=== PATIENT | female | born 1965 | race Caucasian/White ===

== ENCOUNTER → 2016-07-31 | Outpatient (CLI) | payer BC ==
--- NOTE | 2016-07-31 16:32 | BD ---
EXAMINATION TYPE: MG DEXA axial skeleton. DATE OF EXAM: 07/31/2016 3:00 PM COMPARISON: NONE CLINICAL HISTORY: 50-year-old female screening for osteoporosis Height: 61 Weight: 173.1 FRAX RISK QUESTIONS: Alcohol (3 or more units per day): yes Family History (Parent hip fracture): yes Glucocorticoids (More than 3mos): no (Ex: prednisone, prednisolone, methylprednisolone, dexamethasone, and hydrocortisone). History of Fracture in Adulthood: no Secondary Osteoporosis: 1. Type 1 Diabetes: no 2. Hyperthyroidism: no 3. Menopause before 45: no 4. Malnutrition: no 5. Chronic liver disease: no Rheumatoid Arthritis: no Current Tobacco Use: no RISK FACTORS HISTORY OF: Hip Fracture (Right/Left): no Spine Fracture: no History of Wrist Fracture: no Surgery to Spine/Hip(right/left)/Wrist (right/left): no Family History of Osteoporosis: yes Active: yes Diet low in dairy products/other sources of calcium: yes Postmenopausal woman: around age 46 Lost more than 2 inches in height since high school: no Frequent falls: no Adrenal Insufficiency: no MEDICATIONS: high bp meds EXAM MEASUREMENTS: Bone mineral densitometry was performed using the [employer] System. Bone mineral density as measured about the Lumbar spine is: ----- L1-L4(G/cm2): 1.386 T Score Values are as follows: ----- L2: 1.7 ----- L3: 2.3 ----- L4: 1.1 ----- L1-L4: 1.7 Bone mineral density baseline Bone mineral density about the R hip (g/cm2): 1.011 Bone mineral density about the L hip (g/cm2): 0.964 T Score values are as follows: -----R Neck: -0.2 -----L Neck: -0.5 -----R Intertrochanter: 0.3 -----L Intertrochanter: 0.2 Bone mineral density baseline IMPRESSION: Normal bone mineral density as measured in the lumbar spine and both hips. Rescreen in 5 years. NOTE: T-SCORE=SD OF THE YOUNG ADULT MEAN.
--- NOTE | 2016-08-01 14:05 | MM ---
Reason for exam: screening (asymptomatic). Last mammogram was performed 1 year ago. History: Patient had first child at age 30. Family history of breast cancer in maternal aunt. Took hormonal contraceptives for 6 years beginning at age 19. Physical Findings: A clinical breast exam by your physician is recommended on an annual basis and results should be correlated with mammographic findings. MG Screening Mammo w CAD Bilateral CC and MLO view(s) were taken. Prior study comparison: July 26, 2015, bilateral MG screening mammo w CAD. July 21, 2014, bilateral MG screening mammo w CAD. The breast tissue is heterogeneously dense. This may lower the sensitivity of mammography. Finding: There are stable typically benign calcifications in the right breast. No significant changes in finding since July 26, 2015 and July 21, 2014. ASSESSMENT: Benign, BI-RAD 2 RECOMMENDATION: Routine screening mammogram of both breasts in 1 year.
== END | disposition home or self-care (01) ==
LOC: RADMAMWWP 14:27
PROVIDERS: ATTEND Family Medicine
DX: Z12.31 Encounter for screening mammogram for malignant neoplasm of breast (principal); Z13.820 Encounter for screening for osteoporosis
CPT/HCPCS: 77080; G0202

== ENCOUNTER → 2017-08-28 | Outpatient (CLI) | payer BC ==
--- NOTE | 2017-08-29 08:19 | MM ---
Reason for exam: screening (asymptomatic). Last mammogram was performed 1 year and 1 month ago. History: Patient had first child at age 30. Family history of breast cancer in maternal aunt. Took hormonal contraceptives for 6 years beginning at age 19. Physical Findings: A clinical breast exam by your physician is recommended on an annual basis and results should be correlated with mammographic findings. MG Screening Mammo w CAD Bilateral CC and MLO view(s) were taken. Prior study comparison: July 31, 2016, bilateral MG screening mammo w CAD. July 26, 2015, bilateral MG screening mammo w CAD. The breast tissue is heterogeneously dense. This may lower the sensitivity of mammography. Stable benign calcifications in the right breast. There is no discrete abnormality. No significant changes when compared with prior studies. ASSESSMENT: Benign, BI-RAD 2 RECOMMENDATION: Routine screening mammogram of both breasts in 1 year.
== END | disposition home or self-care (01) ==
LOC: RADMAMWWP 15:16
PROVIDERS: ATTEND Family Medicine
DX: Z12.31 Encounter for screening mammogram for malignant neoplasm of breast (principal)
CPT/HCPCS: 77067

== ENCOUNTER → 2018-09-14 | Outpatient (CLI) | payer BC ==
--- NOTE | 2018-09-16 08:15 | MM ---
Reason for exam: screening (asymptomatic). Last mammogram was performed 1 year and 1 month ago. History: Patient had first child at age 30. Family history of breast cancer in maternal aunt at age 60. Took hormonal contraceptives for 6 years beginning at age 19. Physical Findings: A clinical breast exam by your physician is recommended on an annual basis and results should be correlated with mammographic findings. MG Screening Mammo w CAD Bilateral CC and MLO view(s) were taken. Prior study comparison: August 28, 2017, bilateral MG screening mammo w CAD. July 31, 2016, bilateral MG screening mammo w CAD. The breast tissue is heterogeneously dense. This may lower the sensitivity of mammography. No significant changes when compared with prior studies. ASSESSMENT: Benign, BI-RAD 2 RECOMMENDATION: Routine screening mammogram of both breasts in 1 year.
== END | disposition home or self-care (01) ==
LOC: RADMAMWWP 15:14
PROVIDERS: ATTEND Family Medicine
DX: Z12.31 Encounter for screening mammogram for malignant neoplasm of breast (principal)
CPT/HCPCS: 77067

== ENCOUNTER 2019-11-25 06:49 | Day surgery (SDC) | payer BC ==
[2019-11-23 15:57] VITALS: BMI 32.1
[~2019-11-25 06:49] MED LIST: LACTATED RINGERS 1,000 ML IV SCH
[2019-11-25 07:18] VITALS: RESP 16; TEMP 97
[2019-11-25] MEDS ORDERED: LIDOCAINE 1% (10MG/ML) FOR IV START INTRADERMA ONE (07:29)
[2019-11-25] MEDS ORDERED: PROPOFOL 10 MG/ML 20 ML VIAL IV ONE (07:34)
--- NOTE | 2019-11-25 08:11 | P.PCN ---
Date of Procedure: 11/25/19 Description of Procedure: BRIEF HISTORY: Patient is a 54-year-old pleasant female scheduled for an elective colonoscopy as a part of follow-up of a family history of colon cancer. Reports colon cancer in her maternal grandmother as well as colon polyps in her mother. No change in bowel habits, blood per rectum or abdominal pain. PROCEDURE PERFORMED: Colonoscopy with polypectomy. PREOPERATIVE DIAGNOSIS: Family history of colon cancer, last colonoscopy approximately 7 years ago. ESTIMATED BLOOD LOSS: Minimal. IV sedation per Anesthesia. PROCEDURE: After informed consent was obtained, the patient, was brought into the endoscopy unit. IV sedation was administered by Anesthesia under continuous monitoring. Digital rectal examination was normal. Initially the Olympus CF-190 flexible video colonoscope was then inserted in the rectum, gradually advanced into the cecum without any difficulty. Careful examination was performed as the scope was gradually being withdrawn. Ileocecal valve and the appendiceal orifice were visualized and appeared normal. Prep was excellent. Mucosa of the cecum, ascending colon, transverse colon, descending colon, sigmoid colon, and rectum appeared normal. Diminutive 2 mm ascending colon sessile polyp removed with cold forcep polypectomy. Diminutive 2 mm sessile descending colon polyp removed with cold forcep polypectomy. 3 mm sigmoid colon polyp removed with cold forcep polypectomy. Retroflexion was performed in the rectum and no lesions were seen, low-grade internal hemorrhoids. The patient tolerated the procedure well. IMPRESSION: 3 diminutive polyps removed with cold forcep polypectomy. Low-grade internal hemorrhoids. RECOMMENDATIONS: Findings of this examination were discussed with the patient. Okay to resume diet. Okay to resume medications. Await pathology from polypectomy. Would recommend repeat colonoscopy in 7 years given polyps and family history of colon cancer.
[2019-11-25 08:31] VITALS: BP 122/77; PULSE 85
== END 2019-11-25 08:55 | disposition home or self-care (01) ==
LOC: ORWHC2ENDO 06:49
PROVIDERS: ATTEND Internal Medicine
DX: Z12.11 Encounter for screening for malignant neoplasm of colon (principal); D12.2 Benign neoplasm of ascending colon; D12.4 Benign neoplasm of descending colon; K63.5 Polyp of colon; K64.8 Other hemorrhoids; Z80.0 Family history of malignant neoplasm of digestive organs; Z83.71 Family history of colonic polyps; I10 Essential (primary) hypertension; Z88.5 Allergy status to narcotic agent; Z79.899 Other long term (current) drug therapy; Z98.890 Other specified postprocedural states
CPT/HCPCS: 88305; 45380; J2704

== ENCOUNTER → 2019-12-01 | Outpatient (CLI) | payer BC ==
--- NOTE | 2019-12-03 08:50 | MM ---
Reason for exam: screening (asymptomatic). Last mammogram was performed 1 year and 3 months ago. History: Patient had first child at age 30. Family history of breast cancer in maternal aunt at age 60. Took hormonal contraceptives for 6 years beginning at age 19. Physical Findings: A clinical breast exam by your physician is recommended on an annual basis and results should be correlated with mammographic findings. MG Screening Mammo w CAD Bilateral CC and MLO view(s) were taken. Prior study comparison: September 14, 2018, bilateral MG screening mammo w CAD. August 28, 2017, bilateral MG screening mammo w CAD. The breast tissue is heterogeneously dense. This may lower the sensitivity of mammography. No significant changes when compared with prior studies. ASSESSMENT: Negative, BI-RAD 1 RECOMMENDATION: Routine screening mammogram of both breasts in 1 year.
== END | disposition home or self-care (01) ==
LOC: RADMAMWWP 15:02
PROVIDERS: ATTEND Family Medicine
DX: Z12.31 Encounter for screening mammogram for malignant neoplasm of breast (principal)
CPT/HCPCS: 77067

== ENCOUNTER → 2020-02-14 | Outpatient (CLI) | payer BC ==
--- NOTE | 2020-02-15 07:36 | US ---
EXAMINATION TYPE: US pelvis complete transvag DATE OF EXAM: 02/14/2020 COMPARISON: NONE CLINICAL HISTORY: 54-year-old female N95.0 post menopausal bleeding. History of ablation TECHNIQUE: Transabdominal sonographic images of the pelvis were acquired. Transvaginal sonographic images were medically necessary to better assess the following anatomy: Endometrium, ovaries Date of LMP: TALENT ENGINEER, FINDINGS: EXAM MEASUREMENTS: Uterus: 6.7 x 3.9 x 3.1 cm Endometrial Stripe: 0.2 cm Left Ovary: 2.4 x 1.1 x 1.6 cm 1. Uterus: Anteverted. There is a heterogeneous hypoechoic area along the left fundal endometrium me asuring 0.8 x 0.9 x 0.5 cm. 2. Endometrium: Trace fluid seen within endometrial canal 3. Right Ovary: Obscured by overlying bowel gas 4. Left Ovary: single 5 mm follicle/cyst seen 5. Bilateral Adnexa: wnl 6. Posterior cul-de-sac: no free fluid IMPRESSION: 1. A focal 9 mm heterogeneous hypoechoic area along the left fundal endometrium. The remainder of the stripe appears thin compatible with a history of prior endometrial ablation. An endometrial polyp, s ome focal endometrial hyperplasia, or small focus of developing endometrial carcinoma are all in the differential. 2. The right ovary was not visualized.
== END | disposition home or self-care (01) ==
LOC: RADUSWWP 15:23
PROVIDERS: ATTEND Family Medicine
DX: N85.00 Endometrial hyperplasia, unspecified (principal)
CPT/HCPCS: 76830; 76856

== ENCOUNTER → 2020-06-19 | Outpatient (CLI) | payer BC ==
[2020-06-19 16:10] LABS: Basophils % (A) 1 %; Eosinophils # (A) 0.1 k/uL (0-0.7); Eosinophils % (A) 2 %; HCT 43.1 % (34.0-46.0); HGB 14.4 gm/dL (11.4-16.0); Lymphocytes # (A) 2.1 k/uL (1.0-4.8); Lymphocytes % (A) 30 %; MCH 28.8 pg (25.0-35.0); MCHC 33.4 g/dL (31.0-37.0); MCV 86.2 fL (80.0-100.0); Mean Platelet Volume 8.4; Monocytes # (A) 0.3 k/uL (0-1.0); Monocytes % (A) 5 %; Neutrophils # (A) 4.2 k/uL (1.3-7.7); Neutrophils % (A) 61 %; Platelet Count 205 k/uL (150-450); RBC 4.99 m/uL (3.80-5.40); RDW 12.5 % (11.5-15.5)
[2020-06-20 00:38] LABS: African American GFR (CKD) 112.3 (60.0-200.0); Non-African American GFR(CKD) 96.9 (60.0-200.0); Potassium 4.3 mmol/L (3.5-5.5)
== END | disposition home or self-care (01) ==
LOC: LABWHC1 15:16
PROVIDERS: ATTEND Obstetrics & Gynecology
DX: Z01.818 Encounter for other preprocedural examination (principal)
CPT/HCPCS: 36415; 80048; 85025; 86850; 86900; 86901; 93005

== ENCOUNTER 2020-06-26 05:46 | Observation (INO) | payer BC ==
[2020-06-16 15:57] VITALS: BMI 31.1
--- NOTE | 2020-06-25 18:03 | P.HPOB ---
History of Present Illness H&P Date: 06/25/20 Chief Complaint: Postmenopausal bleeding, uterine prolapse with cystocele, u rinary incont. This is a 54 y.o. female, 2, para 2, who presents for total vaginal hysterectomy with anterior vaginal repair, possible total abdominal hysterectomy with bilateral salpingooophorectomy due to postmenopausal bleeding and urinary incontinence with cystocele. She had a previous endometrial ablation in 2011 and began having spotting starting August 2019. Pelvic US showed uterus 6.7 x 3.9 x 3.1 cm with endometrial thickness of 2 mm. There was a small focus along the left fundal endometrium measuring measuring up to 0.9 cm that did not show on followup US. Left ovary showed small follicle cyst and R. ovary was not well-visualized. She has been on progesterone treatment without relief. She was offered referral to urology for evaluation of her urinary incontinence but declined. She will go there if her incontinence persists despite anterior repair. OB Hx: . History of 2 vaginal deliveries. Project Builder Hx: No hx STDs. had a vasectomy. Social Hx: . Works as a cashiers bussers food runners. Review of Systems Constitutional: Reports night sweats, Denies chills, Denies fever Eyes: denies blurred vision, denies pain Ears, nose, mouth and throat: Denies headache, Denies sore throat Cardiovascular: Denies chest pain, Denies shortness of breath Respiratory: Denies cough Gastrointestinal: Denies abdominal pain, Denies diarrhea, Denies nausea, Denies vomiting Genitourinary: Reports abnormal vaginal bleeding, Reports prolapse symptoms, Reports stress incontinence, Reports urinary frequency, Denies pelvic pain Menstruation: Reports postmenopausal Musculoskeletal: Denies myalgias Integumentary: Denies pruritus, Denies rash Neurological: Denies numbness, Denies weakness Psychiatric: Reports change in libido Endocrine: Reports flushing Hematologic/Lymphatic: Reports easy bruising Past Medical History Past Medical History: Hyperlipidemia, Hypertension, Thyroid Disorder History of Any Multi-Drug Resistant Organisms: None Reported Past Surgical History: Adenoidectomy, Tonsillectomy, Uterine Ablation (with D&C, hysteroscopy, 2011) Past Anesthesia/Blood Transfusion Reactions: No Reported Reaction Past Psychological History: No Psychological Hx Reported Smoking Status: Never smoker Past Alcohol Use History: Occasional Past Drug Use History: None Reported - Past Family History Mother Family Medical History: No Reported History Father Family Medical History: Cancer Additional Family Medical History / Comment(s): melanoma Medications and Allergies Home Medications Medication Instructions Recorded Confirmed Type Ezetimibe [Zetia] 10 mg PO HS 11/23/19 06/26/20 History Lisinopril [Prinivil] 10 mg PO HS 11/23/19 06/26/20 History Levothyroxine Sodium [Synthroid] 88 mcg PO DAILY 06/16/20 06/26/20 History Progesterone, Micronized 100 mg PO DAILY 06/16/20 06/26/20 History [Progesterone] Allergies Allergy/AdvReac Type Severity Reaction Status Date / Time codeine Allergy confusion,n Verified 06/26/20 06:12 ausea Exam Osteopathic Statement: *. No significant issues noted on an osteopathic structural exam other than those noted in the History and Physical/Consult. Gen: W/D W/N female in NAD HEENT: within normal limits Heart: regular rate and rhythm Lungs: clear to auscultation bilaterally Abdomen: soft, non-tender Pelvic: uterus small, anteverted with 3rd degree uterine prolapse and 1st degree cystocele. No adnexal masses or tenderness noted. Extremities: Neg. Kari's. Assessment and Plan (1) Postmenopausal bleeding Current Visit: No Status: Acute Code(s): N95.0 - POSTMENOPAUSAL BLEEDING SNOMED Code(s): 45014260 (2) Cystocele with uterine prolapse Current Visit: No Status: Acute Code(s): N81.4 - UTEROVAGINAL PROLAPSE, UNSPECIFIED SNOMED Code(s): 528746648 (3) Urinary incontinence Current Visit: No Status: Acute Code(s): R32 - UNSPECIFIED URINARY I NCONTINENCE SNOMED Code(s): 009810689 Plan: Proceed with total vaginal hysterectomy with anterior vaginal colporrhaphy, possible total abdominal hysterectomy with bilateral salpingooophorectomy. I have discussed the risks, benefits, and alternative therapies for the above- mentioned procedure and for both sedation/anesthesia as well as necessary blood products administration, if indicated, as they pertain to this patient. The patient has indicated her understanding and acceptance of the risks and procedures discussed.
[~2020-06-26 05:46] MED LIST changes: +DEXAMETHASONE SOD PHOSPHATE 4 MG/ML 1 ML VIAL IV ONE; -LACTATED RINGERS 1,000 ML IV SCH; +MIDAZOLAM 2 MG/2 ML VIAL IV PRN; +ONDANSETRON 4 MG/2 ML VIAL IVP ONE; +SCOPOLAMINE 1.5MG/72HR PATCH TRANSDERM ONE
[2020-06-26] MEDS: LACTATED RINGERS 1,000 ML IV SCH (06:46)
[2020-06-26] MEDS ORDERED: fentaNYL (PF) 50 MCG/ML 2 ML AMP IV PRN (07:00)
[2020-06-26] MEDS ORDERED: ONDANSETRON 4 MG/2 ML VIAL IVP PRN ×2 (07:16→10:38)
[2020-06-26] MEDS ORDERED: NALOXONE 0.4 MG/ML 1 ML VIAL IV PRN (07:16)
[2020-06-26] MEDS ORDERED: HYDROmorphone 0.5 MG/0.5 ML SYRINGE IVP PRN (07:16)
[2020-06-26] MEDS ORDERED: LIDOCAINE 1% INJ 10MG/ML (20 ML MDV) ONE (07:33)
[2020-06-26] MEDS ORDERED: NEOSTIGMINE 1 MG/ML 10 ML VIAL ONE (07:33)
[2020-06-26] MEDS ORDERED: PROPOFOL 10 MG/ML 20 ML VIAL IV ONE (07:33)
[2020-06-26] MEDS ORDERED: SUCCINYLCHOLINE CHLORIDE 100 MG/5 ML SYR IV ONE (07:33)
[2020-06-26] MEDS ORDERED: ROCURONIUM 10 MG/ML (10 ML VIAL) IV ONE (07:33)
[2020-06-26] MEDS ORDERED: GLYCOPYRROLATE 0.2 MG/ML 2 ML VIAL ONE (07:33)
[2020-06-26] MEDS ORDERED: fentaNYL (PF) 50 MCG/ML 2 ML AMP ONE (07:33)
[2020-06-26] MEDS ORDERED: LACTATED RINGERS 1,000 ML IV ONE ×3 (07:59→09:51)
[2020-06-26] MEDS ORDERED: EPINEPHrine 1 MG/ML 1 ML AMP IV ONE (08:00)
[2020-06-26] MEDS ORDERED: BACITRACIN ZINC 500 UNIT/GM OINT 28.4 GM TUBE TOPICAL ONE ×2 (08:12→08:37)
--- NOTE | 2020-06-26 08:43 | P.OP ---
Date of Procedure: 06/26/20 Preoperative Diagnosis: Postmenopausal bleeding Uterine prolapse Cystocele Urinary stress incontinence Postoperative Diagnosis: Same Procedure(s) Performed: Total vaginal hysterectomy with anterior vaginal colporrhaphy Anesthesia: GETA, spinal (Duramorph) Surgeon: Mell Kennedy Tactical Response Group Officer #1: Shaka Harper Estimated Blood Loss (ml): 50 Pathology: other (Uterus with cervix, vaginal mucosa) Condition: stable Disposition: floor Indications for Procedure: This is a 54 y.o. female, 2, para 2, who presents for total vaginal hysterectomy with anterior vaginal repair, possible total abdominal hysterectomy with bilateral salpingooophorectomy due to postmenopausal bleeding and urinary incontinence with cystocele. She had a previous endometrial ablation in 2011 and began having spotting starting August 2019. Pelvic US showed uterus 6.7 x 3.9 x 3.1 cm with endometrial thickness of 2 mm. There was a small focus along the left fundal endometrium measuring measuring up to 0.9 cm that did not show on followup US. Left ovary showed small follicle cyst and R. ovary was not well-visualized. She has been on progesterone treatment without relief. She was offered referral to urology for evaluation of her urinary incontinence but declined. She will go there if her incontinence persists despite anterior repair. Operative Findings: Uterus with grade 3 prolapse and grade 2-3 cystocele noted. Minimal rectocele noted. Neither tubes or ovaries were visualized. Description of Procedure: The patient is taken the operating room where she is placed in the dorsal lithotomy position. She is prepped and draped in the normal sterile fashion. Next a weighted speculum was placed in the patient's vagina and a right angle retractor was used to visualize the cervix. The anterior lip of the cervix is grasped with a single-tooth tenaculum. Next the cervix was circumferentially injected with one amp of epinephrine to 150 mL of normal saline. Next the cervix was circumscribed with a scalpel. The vaginal mucosa was pushed away from the cervix with a sponge. Next the uterosacral ligaments are clamped on either side with a Tara clamp, cut with Howell scissors, and then sutured with 0 Vicryl suture in a Tara transfixion stitch and then held on either side with a straight hemostat. Next the posterior peritoneal reflection was identified and entered sharply with Howell scissors. The edges of the vaginal mucosa was then tagged with 0 Vicryl suture and held with a curved hemostat for identification. Next a longbilled weighted speculum was placed through the posterior peritoneal reflection. Next the cardinal ligaments were clamped on either side with Tara clamps, cut with Howell scissors, and then sutured with 0 Vicryl suture in Tara transfixion stitches and cut. Next the vesicouterine peritoneum reflection is identified and entered sharply with Metzenbaum scissors. A right angle bladder retractor is then used to retract the bladder. The uterine arteries are clamped on either side with Tara clamps, cut with Howell scissors, and then sutured with 0 Vicryl suture in Tara transfixion stitches. The round ligament is also clamped on either side with a Tara clamp, cut with Howell scissors, and sutured with 0 Vicryl suture in Tara transfixion stitches. Next the uterine ovarian ligament and tube were clamped on either side with a Tara clamp, cut with Howell scissors, and then sutured with 0 Vicryl suture in a [id number] stitch, flashed, and then free tied with another suture of 0 Vicryl suture. These pedicles were held with a straight Xavi for identification. The uterus is removed from the field. Excellent hemostasis is noted. Next the peritoneum is closed with 0 Vicryl suture in a pursestring fashion incorporating all the held ligaments. Neither ovary or tube was visualized prior to closing the vaginal cuff area. Next the uterine ovarian ligaments are tied together in the middle and cut. Next attention was turned to the cystocele repair. The edges of the vaginal mucosa are held with 2 Allis clamps. Next injection of the same epinephrine solution is injected underneath the mucosa upwards towards the urethra. Metzenbaum scissors were used to dissect underneath the vaginal mucosa and cut along the way up to just below the urethra. Sharp and blunt dissection are used to dissect the bladder away from the vaginal mucosa. Once the bladder is freed, the cystocele is reduced with 0 Vicryl suture in [id number] stitches on either side of the cystocele. Next the edges of the vaginal mucosa are trimmed with Metzenbaum scissors. Next the vaginal mucosa is sutured with 0 Vicryl suture in a running locked fashion incorporating the vaginal cuff. The uterosacral ligaments were also tied together in the midline prior to completely closing the vaginal cuff. Excellent hemostasis is noted. The Harding catheter is inserted and clear urine is noted. Next the vagina is packed with one-inch iodoform gauze with bacitracin ointment. All sponge and needle counts are correct and the patient is then taken to recovery room in stable condition.
[2020-06-26] MEDS ORDERED: ONDANSETRON 4 MG/2 ML VIAL IVP ONE (09:33)
[2020-06-26] MEDS ORDERED: PROMETHAZINE INJ 25 MG/ML 1 ML VIAL IVPB ONE (10:02)
[2020-06-26] MEDS ORDERED: KETOROLAC 15 MG/ML 1 ML VIAL IVP PRN (10:38)
[2020-06-26] MEDS ORDERED: diphenhydrAMINE 50 MG/ML 1 ML VIAL IVP PRN (10:38)
[2020-06-26] MEDS ORDERED: SIMETHICONE 80 MG CHEWABLE PO PRN (10:38)
[2020-06-26] MEDS: SENNOSIDES-DOCUSATE SODIUM 1 EACH TAB PO SCH ×2 (12:49→21:23)
[2020-06-26] MEDS: LEVOTHYROXINE 88 MCG TAB PO SCH (12:49)
[2020-06-26] MEDS: METOCLOPRAMIDE 5 MG/ML 2 ML VIAL IVP PRN (18:24)
[2020-06-26] MEDS: EZETIMIBE 10 MG TAB PO SCH (21:22)
[2020-06-26] MEDS: lisinopriL 10 MG TAB PO SCH (21:23)
[2020-06-27] MEDS: LEVOTHYROXINE 88 MCG TAB PO SCH (06:05)
--- NOTE | 2020-06-27 06:24 | P.PN ---
Progress Note - Text Progress Note Date: 06/27/20 POD 1 vaginal hysterectomy. doing well, spinal duramorph placed on day of surgery. pain well controlled, no analgesics used post opt. mild nausea, one dose of reglan. Mild pruritis. ambulating, able to void. mental status normal. no sedation.
[2020-06-27] MEDS: LACTATED RINGERS 1,000 ML IV SCH (06:37)
[2020-06-27 06:55] LABS: Basophils % (A) 0 %; Eosinophils % (A) 0 %; HCT 39.9 % (34.0-46.0); HGB 13.4 gm/dL (11.4-16.0); Lymphocytes # (A) 1.9 k/uL (1.0-4.8); Lymphocytes % (A) 17 %; MCH 29.2 pg (25.0-35.0); MCHC 33.6 g/dL (31.0-37.0); Mean Platelet Volume 8.3; Monocytes # (A) 0.5 k/uL (0-1.0); Monocytes % (A) 5 %; Neutrophils # (A) 8.5 k/uL (1.3-7.7); Neutrophils % (A) 77 %; Platelet Count 229 k/uL (150-450); RBC 4.59 m/uL (3.80-5.40); RDW 12.6 % (11.5-15.5)
--- NOTE | 2020-06-27 08:29 | P.PN ---
Subjective Progress Note Date: 06/27/20 Principal diagnosis: She'll history to me with anterior vaginal colporrhaphy postoperative day #1 Impression is doing well. She did have a lot of nausea and vomiting yesterday but feels somewhat better this morning. She denies any pain. Bleeding has been minimal. Her catheter was removed this morning but she has not urinated yet. Objective - Vital Signs Vital signs: Vital Signs Temp 98.2 F 06/27/20 00:00 Pulse 87 06/27/20 00:00 Resp 16 06/27/20 06:00 BP 83/47 06/27/20 00:00 Pulse Ox 95 06/27/20 00:00 Intake & Output 06/26/20 06/27/20 06/27/20 18:59 06:59 18:59 Intake Total 1650 Output Total 700 1500 Balance 950 -1500 Weight 74 kg Intake: IV 1650 Output: Urine 650 1500 Uretheral (Harding) 500 300 Estimated Blood Loss 50 - Constitutional General appearance: Present: no acute distress - Gastrointestinal General gastrointestinal: Present: normal bowel sounds - Genitourinary Genitourinary Comment(s): Flor-pad shows scant serosanguineous discharge - Labs CBC & Chem 7: 06/27/20 06:19 Labs: Abnormal Lab Results - Last 24 Hours (Table) 06/27/20 Range/Units 06:19 WBC 11.0 H (3.8-10.6) k/uL Neutrophils # 8.5 H (1.3-7.7) k/uL Assessment and Plan Assessment: Status post total vaginal hysterectomy with anterior vaginal colporrhaphy postoperative day #1 (1) Postmenopausal bleeding Current Visit: No Status: Acute Code(s): N95.0 - POSTMENOPAUSAL BLEEDING SNOMED Code(s): 32680159 (2) Cystocele with uterine prolapse Current Visit: No Status: Acute Code(s): N81.4 - UTEROVAGINAL PROLAPSE, UNSPECIFIED SNOMED Code(s): 533879337 (3) Urinary incontinence Current Visit: No Status: Acute Code(s): R32 - UNSPECIFIED URINARY INCONTIN ENCE SNOMED Code(s): 719145753 Plan: Encouraged ambulation today. We will try to advance to regular diet as tolerated today. Will work on bladder training. Anticipate discharge home tomorrow.
[2020-06-27] MEDS: SENNOSIDES-DOCUSATE SODIUM 1 EACH TAB PO SCH (09:26)
[2020-06-27] MEDS: METOCLOPRAMIDE 5 MG/ML 2 ML VIAL IVP PRN (09:26)
[2020-06-27] MEDS: IBUPROFEN 600 MG TAB PO PRN (17:35)
[2020-06-27] MEDS: EZETIMIBE 10 MG TAB PO SCH (21:17)
[2020-06-27] MEDS: lisinopriL 10 MG TAB PO SCH (21:17)
[2020-06-28 01:20] VITALS: RESP 16
[2020-06-28] MEDS: IBUPROFEN 600 MG TAB PO PRN ×2 (01:43→08:56)
--- NOTE | 2020-06-28 08:29 | P.DS ---
Providers Date of admission: 06/27/20 14:25 Expected date of discharge: 06/28/20 Attending physician: Mell Kennedy Primary care physician: Shelly Zaragoza - Discharge Diagnosis(es) (1) Postmenopausal bleeding Current Visit: No Status: Acute (2) Cystocele with uterine prolapse Current Visit: No Status: Acute (3) Urinary incontinence Current Visit: No Status: Acute Hospital Course: This is a 54-year-old female who underwent a total vaginal hysterectomy with anterior vaginal colporrhaphy on 06/26/2020. Postoperatively she has done well. She did have initial postop nausea and vomiting that did resolve. She is curre ntly ambulating, tolerating regular diet, and passing flatus. She is urinating without difficulty. Pain is fairly well controlled with ibuprofen. Vital signs are stable. Abdomen is soft with positive bowel sounds 4. Her genesis-pad shows scant discharge. Extremities show negative Homans. Impression is status post total vaginal hysterectomy with anterior repair postoperative day #2. Plan is t o discharge home today. Routine postoperative instructions are given. She will be given a prescription for ibuprofen. She is advised to follow up in the office in approximately 1 week for a postoperative check. Is advised to call the office if she has any further questions or concerns prior to her appointment time. Procedures: Total vaginal hysterectomy with anterior vaginal colporrhaphy on 06/26/2020 Patient Condition at Discharge: Stable Plan - Discharge Summary Discharge Rx Participant: No New Discharge Prescriptions: New Ibuprofen [Motrin] 600 mg PO Q6HR PRN #60 tab PRN Reason: Mild Discomfort Continue Lisinopril [Prinivil] 10 mg PO HS Ezetimibe [Zetia] 10 mg PO HS Levothyroxine Sodium [Synthroid] 88 mcg PO DAILY Discontinued Progesterone, Micronized [Progesterone] 100 mg PO DAILY Discharge Medication List Ezetimibe [Zetia] 10 mg PO HS 11/23/19 [History] Lisinopril [Prinivil] 10 mg PO HS 11/23/19 [History] Levothyroxine Sodium [Synthroid] 88 mcg PO DAILY 06/16/20 [History] Ibuprofen [Motrin] 600 mg PO Q6HR PRN #60 tab 06/28/20 [Rx] Follow up Appointment(s)/Referral(s): Mell Kennedy DO [Doctor of Osteopathic Medicine] - 1 Week Activity/Diet/Wound Care/Special Instructions: Activity as tolerated. Diet as tolerated. May shower, but no tub baths for at least 1 week. No intercourse. Discharge Disposition: HOME SELF-CARE
[2020-06-28] MEDS: LEVOTHYROXINE 88 MCG TAB PO SCH (08:56)
[2020-06-28 09:22] VITALS: BP 131/86; PULSE 84; TEMP 97.4
[2020-06-28] MEDS: SENNOSIDES-DOCUSATE SODIUM 1 EACH TAB PO SCH (11:51)
== END 2020-06-28 11:48 | disposition home or self-care (01) ==
LOC: OR 05:46 → 4FBP 08:35 → OR 06-27 14:25
PROVIDERS: ADMIT Obstetrics & Gynecology; ATTEND Obstetrics & Gynecology
DX: N95.0 Postmenopausal bleeding (principal); N81.3 Complete uterovaginal prolapse; N80.0 Endometriosis of uterus; N72 Inflammatory disease of cervix uteri; N39.3 Stress incontinence (female) (male); E78.5 Hyperlipidemia, unspecified; I10 Essential (primary) hypertension; E07.9 Disorder of thyroid, unspecified; L29.9 Pruritus, unspecified; R11.2 Nausea with vomiting, unspecified; Z79.890 Hormone replacement therapy; Z79.899 Other long term (current) drug therapy; Z88.5 Allergy status to narcotic agent; Z98.890 Other specified postprocedural states; Z80.8 Family history of malignant neoplasm of other organs or systems
CPT/HCPCS: 85025; 88307; 57240; 58260; G0378 ×2; J2250; J0171; J1100; J2550; J2710; J2765 ×2; J0690; J2405; J2001; J3010; J1885; J0330; J2704; 86850; 86900; 86901

== ENCOUNTER → 2021-02-07 | Outpatient (CLI) | payer BC ==
--- NOTE | 2021-02-09 14:34 | MM ---
Reason for exam: screening (asymptomatic). Last mammogram was performed 1 year and 2 months ago. History: Patient had first child at age 30. Family history of breast cancer in maternal aunt at age 60. Took hormonal contraceptives for 6 years beginning at age 19. Physical Findings: A clinical breast exam by your physician is recommended on an annual basis and results should be correlated with mammographic findings. MG Screening Mammo w CAD Bilateral CC and MLO view(s) were taken. Prior study comparison: December 01, 2019, bilateral MG screening mammo w CAD. September 14, 2018, bilateral MG screening mammo w CAD. August 28, 2017, bilateral MG screening mammo w CAD. There are scattered fibroglandular densities. Focal asymmetry anterior riht breast is unchanged. No significant changes when compared with prior studies. ASSESSMENT: Negative, BI-RAD 1 RECOMMENDATION: Routine screening mammogram of both breasts in 1 year.
== END | disposition home or self-care (01) ==
LOC: RADMAMWWP 15:08
PROVIDERS: ATTEND Family Medicine
DX: Z12.31 Encounter for screening mammogram for malignant neoplasm of breast (principal); Z80.3 Family history of malignant neoplasm of breast; Z79.3 Long term (current) use of hormonal contraceptives
CPT/HCPCS: 77067

== ENCOUNTER → 2022-02-22 | Outpatient (CLI) | payer BC ==
--- NOTE | 2022-02-25 19:41 | MM ---
Reason for Exam: Screening (asymptomatic). Last screening mammogram was performed 12 month(s) ago. Patient History: Menarche at age 11. First Full-Term at age 30. Late child-bearing (after 30). Hormonal Contraceptives, starting at age 19 for 6 years. Maternal aunt had breast cancer, age 60. Risk Values: Riya 5 year model risk: 1.8%. NCI Lifetime model risk: 10.5%. Prior Study Comparison: 09/14/2018 Bilateral Screening Mammogram, [facility]. 12/01/2019 Bilateral Screening Mammogram, [facility] 02/07/2021 Bilateral Screening Mammogram, [facility]. Tissue Density: The breast tissue is heterogeneously dense. This may lower the sensitivity of mammography. Findings: Analyzed By CAD. There is no suspicious group of microcalcifications or new suspicious mass in either breast. Overall Assessment: Negative, BI-RAD 1 Management: Screening Mammogram of both breasts in 1 year. 1. Patient should continue monthly self breast exams. 2. A clinical breast exam by your physician is recommended on an annual basis. 3. This exam should not preclude additional follow-up of suspicious palpable abnormalities. Electronically signed and approved by: Kanwal Calvo M.D. Radiologist
== END | disposition home or self-care (01) ==
LOC: RADMAMWWP 15:40
PROVIDERS: ATTEND Family Medicine
DX: Z12.31 Encounter for screening mammogram for malignant neoplasm of breast (principal); Z80.3 Family history of malignant neoplasm of breast
CPT/HCPCS: 77067

== ENCOUNTER → 2022-03-22 | Outpatient (CLI) | payer BC ==
--- NOTE | 2022-03-24 07:12 | MR ---
EXAMINATION TYPE: MR lumbar spine wo con DATE OF EXAM: 03/22/2022 COMPARISON: NONE HISTORY: Back pain and Rt leg pain x4 months TECHNIQUE: Multiplanar, multisequence imaging of the lumbar spine is performed without IV contrast. FINDINGS: Sagittal images of the lumbar spine show vertebral body height to appear satisfactory. Ther e is grade 1 retrolisthesis L1 on L2. Multilevel disc desiccation. Moderate to advanced disc space na rrowing with moderate anterior spurring and heterogeneous moderate type II endplate changes L1-L2 lev el. Moderate disc space narrowing with vacuum disc phenomenon at L2-L3 level. Mild to moderate disc s pace narrowing L4-L5 and L5-S1 levels The conus medullaris is normal in position and signal ending i nferior L1 level. Posterior disc herniations efface the anterior thecal sac T10-T11 and T11-T12 leve ls. Axial images at T12-L1 level appears within normal limits. Axial images at L1-L2 level show [id number] broad disc bulge with central disc protrusion effac ing anterior thecal sac. Patent bilateral neural foramina. Axial images at L2-L3 level shows mild broad-based posterior disc protrusion along with mild right fa cet arthropathy and ligamentum flavum hypertrophy. There is minimal effacement of the anterior thecal sac. There is no significant neural foraminal narrowing. Axial images at the L3-L4 level shows mild/moderate facet arthropathy and ligamentum flavum hypertrop hy effacing the posterolateral thecal sac. There is a broad-based left paracentral/foraminal disc pro trusion effacing the anterolateral thecal sac on axial image 12. There is mild to moderate left-sided anterior inferior neural foraminal narrowing. Right-sided neural foramen is patent. Axial images at L4-L5 level show mild/moderate facet arthropathy bilaterally. There is posterior adelaida lar tear. There is mild bilateral neural foraminal narrowing. Axial images at L5-S1 level shows central disc protrusion minimally effacing anterior thecal sac ambrose g with mild facet arthropathy bilaterally. Patent bilateral neural foramina. Paraspinal muscle bulk is preserved. IMPRESSION: Multilevel degenerative changes in the lumbar spine greatest at L3-L4 level as detailed a portia.
== END | disposition home or self-care (01) ==
LOC: RADMRIMAIN 21:45
PROVIDERS: ATTEND Family Medicine
DX: M51.36 Other intervertebral disc degeneration, lumbar region (principal); M47.816 Spondylosis without myelopathy or radiculopathy, lumbar region
CPT/HCPCS: 72148

== ENCOUNTER → 2024-03-19 | Outpatient (CLI) | payer BC ==
--- NOTE | 2024-03-23 18:52 | MM ---
Reason for Exam: Screening (asymptomatic). Last screening mammogram was performed 12 month(s) ago. Patient History: Menarche at age 11. First Full-Term at age 30. Late child-bearing (after 30). Hysterectomy at age 55. Patient has history of breast feeding. Hormonal Contraceptives, starting at age 19 for 6 years. Maternal aunt had breast cancer, age 60. Risk Values: Riya 5 year model risk: 2.0%. NCI Lifetime model risk: 10.0%. Prior Study Comparison: 02/07/2021 Bilateral Screening Mammogram, [facility]. 02/22/2022 Bilateral MG screening mammo w CAD, [facility]. 03/03/2023 Bilateral MG screening mammo w CAD, [facility]. Tissue Density: The breasts are heterogeneously dense, which may obscure small masses. Findings: Analyzed By CAD. Unchanged tiny benign punctate grouped calcifications inferior right breast. There is no suspicious group of microcalcifications or new suspicious mass in either breast. Overall Assessment: Benign, BI-RAD 2 Management: Screening Mammogram of both breasts in 1 year. . Patient should continue monthly self-breast exams. A clinical breast exam by your physician is recommended on an annual basis. This exam should not preclude additional follow-up of suspicious palpable abnormalities. Note on Riya scores and lifetime risk: 1. A Riya score greater than 3% is considered moderate risk. If this is the case, consider specialist referral to assess eligibility for a risk reducing agent. 2. If overall lifetime risk for the development of breast cancer is 20% or higher, the patient may qualify for future screening with alternating mammogram and breast MRI. [facility], , 03/23/2024 6:50 PM. Electronically signed and approved by: Kanwal Calvo M.D. Radiologist
== END | disposition home or self-care (01) ==
LOC: RADMAMWWP 15:11
PROVIDERS: ATTEND Family Medicine
CPT/HCPCS: 77067